=== PATIENT | female | born 1960 | race Caucasian/White ===

== ENCOUNTER 2018-07-04 08:23 | Day surgery (SDC) ==
[2018-07-04 08:42] VITALS: TEMP 97.8
[2018-07-04] MEDS ORDERED: LIDOCAINE 1% 20 ML MDV ID STA (08:45)
[2018-07-04] MEDS ORDERED: DIPRIVAN 20 ML VIAL IVP ONE (09:55)
--- NOTE | 2018-07-05 10:13 | OP ---
INDICATIONS FOR PROCEDURE: 57-year-old female presents for surveillance exam. She has a history of adenomatous polyps found on colonoscopy last year. 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 In 2017 she had active inflammation involving a segment in her sigmoid colon from 12 to 20 cm. She is asymptomatic now. MEDICATIONS: SEE ANESTHESIA NOTES. PROCEDURE: COLONOSCOPY, SURVEILLANCE BIOPSIES, SNARE POLYPECTOMY. REPORT: The risks, benefits, alternatives and limitations were discussed in detail with the patient. Informed consent was obtained. After adequate sedation was achieved, a digital rectal exam revealed good tone, no masses. The colonoscope was introduced into the rectum and advanced under direct visual guidance to the cecum. The cecum was identified by the appendiceal orifice and IC valve. I then slowly withdrew the scope in a circumferential manner examining the mucosa quite carefully. I looked on the proximal and distal side of folds and flexures as best as possible. I retroflexed the scope in the right colon as well as the left colon to increase visualization. In the proximal transverse colon there was a semi sessile 6 mm polyp to 7 mm that I removed by snare technique. In the sigmoid there are multiple small diverticula. No other abnormalities were noted including on retroflex view of the anal canal. There was no evidence of active colitis. Surveillance biopsies were obtained from the cecum, proximal transverse, distal transverse, descending, sigmoid and rectal areas. The prep was good. The withdrawal time was 14 minutes and 40 seconds. The patient tolerated the procedure well with stable vital signs and pulse oximetry throughout. IMPRESSION: 1. SMALL POLYP REMOVED FROM THE PROXIMAL TRANSVERSE. 2. SIGMOID DIVERTICULOSIS. 3. NO ACTIVE EVIDENCE OF COLITIS. RECOMMENDATIONS: 1. Continue same medications. 2. Await surveillance biopsies. 3. Await polyp pathology. 4. High fiber diet. 5. Office visit as needed and as scheduled next year for her routine followup. 6. Surveillance colonoscopy examination again in 2 years, sooner if there are signs or symptoms to indicate otherwise. CC: DR. HOMAR RUTLEDGE
[2018-07-06 10:49] VITALS: BP 129/67
== END 2018-07-04 11:30 | disposition home or self-care (01) ==
LOC: SURG 08:23
PROVIDERS: ATTEND Internal Medicine Gastroenterology
DX: K51.80 Other ulcerative colitis without complications (principal); D12.3 Benign neoplasm of transverse colon; Z86.010 Personal history of colon polyps; K57.90 Diverticulosis of intestine, part unspecified, without perforation or abscess without bleeding